=== PATIENT | male | born 1960 | race Caucasian/White ===

== ENCOUNTER 2020-05-10 01:59 | Emergency (ER) | payer OTHER ==
[2020-05-10] MEDS ORDERED: cloNIDine HCL 0.1 MG TAB ONE (02:14)
== END 2020-05-10 04:54 | disposition left against medical advice (07) ==
LOC: ER 01:59
DX: Z53.21 Procedure and treatment not carried out due to patient leaving prior to being seen by health care provider

== ENCOUNTER 2020-05-10 05:50 | Emergency (ER) | payer OTHER ==
[~2020-05-10] VITALS: Ht 162.6 cm; Wt 68.0 kg
[2020-05-10] MEDS ORDERED: cloNIDine HCL 0.1 MG TAB PO ONE (06:30)
[2020-05-10 06:54] LABS: Basophils # (auto) 0.2 10 ^3/uL (0-0.2); Eosinophils # (auto) 0 10 ^3/uL (0-0.8); Eosinophils % (auto) 0.3 % (0.0-7.0); Hematocrit 49.1 % (41.0-53.0); Hemoglobin 16.5 g/dL (13.5-17.5); Lymphocytes % (auto) 41.4 % (10.0-50.0); Mean Corpuscular Hemoglobin 29.9 pg (28.0-32.0); Mean Corpuscular Hgb Conc. 33.6 g/dL (32.0-36.0); Mean Corpuscular Volume 89.2 fL (80.0-100.0); Monocytes # (auto) 0.7 10 ^3/uL (0-1.3); Neutrophils % (auto) 53.3 % (37.0-80.0); Nucleated Red Blood Cells % 0.2 %; Platelet Count (auto) 214 10^3/uL (140-450); Red Blood Cells 5.51 10^6/uL (4.5-5.90); Red Cell Distribution Width 14.3 % (11.8-14.3); White Blood Cell 16.8 10^3/uL (4.4-10.8)
[2020-05-10 07:17] LABS: Albumin 3.8 g/dL (3.4-5.0); Anion Gap 4 (5-15); Blood Urea Nitrogen 8 mg/dL (7-18); Calcium 8.4 mg/dL (8.5-10.1); Carbon Dioxide 27 mmol/L (21-32); Chloride 109 mmol/L (98-107); Glucose 102 mg/dL (74-106); Magnesium 2.3 mg/dL (1.6-2.6); Sodium 140 mmol/L (136-145)
[2020-05-10 07:21] LABS: INR 0.94 (0.9-1.15); Partial Thromboplastin Time 28.1 sec (23.0-31.2)
[2020-05-10 07:24] LABS: Alanine Aminotransferase 19 U/L (16-61); Alkaline Phosphatase 135 U/L (45-117); Aspartate Aminotransferase 18 U/L (15-37); Bilirubin, Total 0.9 mg/dL (0.2-1.0); GFR African American 84 mL/min; GFR Non-African American 70 mL/min; Total Protein 7.2 g/dL (6.4-8.2)
[2020-05-10 07:39] LABS: Potassium 2.9 mmol/L (3.5-5.1)
[2020-05-10] MEDS ORDERED: SODIUM CHLORIDE 0.9% 1,000 ML IV ONE (07:41)
[2020-05-10] MEDS ORDERED: LABETALOL HCL 5 MG/ML 4ML SYRINGE IV ONE (07:45)
[2020-05-10 07:49] LABS: Urine Bacteria NONE SEEN /hpf (None Seen); Urine Blood Negative /uL (Negative); Urine Specific Gravity 1.009 (1.001-1.035); Urine WBC 3 /hpf (0 - 3)
[2020-05-10 09:00] VITALS: BP 141/93
== END 2020-05-10 09:43 | disposition left against medical advice (07) ==
LOC: ER 05:50 → EDBD 05:50 → EDUNIT# 05:50 → ER 09:43
DX: S00.83XA Contusion of other part of head, initial encounter (principal); I10 Essential (primary) hypertension; E87.6 Hypokalemia; F17.210 Nicotine dependence, cigarettes, uncomplicated; X58.XXXA Exposure to other specified factors, initial encounter; Y93.89 Activity, other specified; Y92.89 Other specified places as the place of occurrence of the external cause; Y99.8 Other external cause status
CPT/HCPCS: 36415; 70450; 71045; 80053; 81001; 83735; 83880; 84443; 84484; 85025; 85610; 85730; 93005; 96361; 96374; 99285; J3490; J7030